=== PATIENT | male | born 1960 | race Two or more races ===

== ENCOUNTER 2023-03-29 09:13 | Outpatient (CLI) | payer OTHER ==
[2023-03-29 12:17] LABS: PH,URINE 7.5 (5.0-8.0); URINE APPEARANCE Clear; URINE BILIRRUBIN Negative (NEGATIVE); URINE BLOOD Negative; URINE COLOR Yellow; URINE GLUCOSE Negative (NEGATIVE); URINE LEUKOCYTE Negative; URINE NITRATE Negative; URINE PROTEIN Negative (NEGATIVE); URINE UROBILINOGEN 0.2 E.U./dl
[2023-03-29 12:18] LABS: URINE RBC 29.1 uL (0.0-20.8)
[2023-03-29 12:20] LABS: HEMATOCRIT 43.5 % (39.0-48.0); HEMOGLOBIN 14.9 g/dL (13-16.00); MEAN CELL VOLUME 91.4 fL (80.0-100.00); MEAN CORPUSCULAR HEMOGLOBIN 31.4 pg (27.00-32.0); MEAN CORPUSCULAR HGB CONC 34.3 g/dl (32.0-36.0); PLATELET COUNT 202 K/uL (150-450); RED BLOOD COUNT 4.75 M/uL (4.00-6.00); RED CELL DISTRIBUTION WIDTH 13.4 % (11.5-14.5)
[2023-03-29 12:32] LABS: URINE BACTERIA 0 uL (0.0-1933); URINE EPITHELIAL CELLS 0.6 uL (0.0-38.8); URINE WBC 0.3 uL (0.0-23.2)
[2023-03-29 12:48] LABS: ALBUMIN 4.1 gm/dL (3.4-5.0); ALKALINE PHOSPHATASE 81 U/L (50-136); ALT/SGPT 23 U/L (12-78); ANION GAP 6 (10.0-20.0); AST/SGOT 20 U/L (15-37); BILIRUBIN TOTAL 0.76 mg/dL (0.3-1.2); BLOOD UREA NITROGEN 16 mg/dL (7-18); BUN CREA RATIO 16 (7.0-25.0); CALCIUM 8.9 mg/dL (8.5-10.1); CARBON DIOXIDE 31 mEq/L (21-32); CHLORIDE 106 mmol/L (98-107); CHOL HDL RATIO 2.6 (0-5.0); CHOLESTEROL 170 mg/dL (0-200); CREATININE SERUM 0.99 mg/dL (0.70-1.30); GLOBULINA 3.3 G/DL (2.4-3.5); GLUCOSE FASTING 95 mg/dL (65-100); HDL 65 mg/dl (40-60); LDL 94 mg/dl (0-130); OSMOLALITY SERUM 279 MOSM/KG (275-295); POTASSIUM 4.09 mEq/L (3.5-5.1); SODIUM 139 mmol/L (136-145); TOTAL PROTEIN 7.4 gm/dL (6.4-8.2); TRIGLYCERIDES 57 mg/dL (0-150); VLDL 11 (0-39)
[2023-03-29 12:51] LABS: C-REACTIVE PROTEIN < 0.29 MG/DL (0.00-0.29)
[2023-03-29 13:06] LABS: PROSTATIC SPECIFIC ANTIGEN 0.731 NG/ML (0.010-4.00)
[2023-03-29 14:16] LABS: T3 TOTAL 1.06 ng/ml (0.846-2.02); VITAMIN D3 25 HYDROXY 55.39 ng/ml (30-120)
== END 2023-03-29 09:18 | disposition home or self-care (01) ==
LOC: LAB 09:13
PROVIDERS: ATTEND Internal Medicine
DX: M19.91 Primary osteoarthritis, unspecified site (principal); N40.0 Benign prostatic hyperplasia without lower urinary tract symptoms; E03.9 Hypothyroidism, unspecified; R73.9 Hyperglycemia, unspecified; E55.9 Vitamin D deficiency, unspecified; Z12.11 Encounter for screening for malignant neoplasm of colon; E78.9 Disorder of lipoprotein metabolism, unspecified; Z88.6 Allergy status to analgesic agent

== ENCOUNTER 2023-03-29 12:19 | Outpatient (CLI) | payer OTHER ==
[2023-03-29 13:52] LABS: ob NEGATIVE (NEGATIVE)
== END 2023-03-29 12:21 | disposition home or self-care (01) ==
LOC: LAB 12:19
PROVIDERS: ATTEND Internal Medicine
DX: Z12.11 Encounter for screening for malignant neoplasm of colon (principal)

== ENCOUNTER 2023-04-28 12:28 | Outpatient (CLI) | payer OTHER | END 2023-04-28 12:46 | disposition home or self-care (01) | LOC: MRI 12:28 | PROVIDERS: ATTEND Internal Medicine | DX: M54.50 Low back pain, unspecified (principal); M43.16 Spondylolisthesis, lumbar region; Z88.6 Allergy status to analgesic agent | CPT/HCPCS: 72148 ==

== ENCOUNTER → 2023-07-26 09:52 | Outpatient (CLI) | payer OTHER | END | disposition home or self-care (01) | LOC: LAB 09:52 | PROVIDERS: ATTEND Internal Medicine | DX: R31.29 Other microscopic hematuria (principal); R36.1 Hematospermia ==

== ENCOUNTER → 2024-05-08 11:09 | Outpatient (CLI) | payer OTHER ==
[2024-05-08 12:10] LABS: CREATININE SERUM 0.97 mg/dL (0.70-1.30); GFR 77.67
== END | disposition home or self-care (01) ==
LOC: LAB 11:09
PROVIDERS: ATTEND Radiology Diagnostic Radiology
DX: R22.1 Localized swelling, mass and lump, neck (principal)

== ENCOUNTER 2024-05-09 07:58 | Outpatient (CLI) | payer OTHER | END 2024-05-09 08:10 | disposition home or self-care (01) | LOC: TOM 07:58 | PROVIDERS: ATTEND Internal Medicine | DX: R22.1 Localized swelling, mass and lump, neck (principal) | CPT/HCPCS: 70491; Q9965 ==

== ENCOUNTER 2024-12-08 13:41 | Outpatient (CLI) | payer OTHER | END 2024-12-08 13:48 | disposition home or self-care (01) | LOC: RAD 13:41 | PROVIDERS: ATTEND Internal Medicine | DX: M25.521 Pain in right elbow (principal) ==